=== PATIENT | male | born 1995 | race Caucasian/White ===

== ENCOUNTER 2018-09-18 02:16 | Emergency (ER) | payer SELFPAY ==
[2018-09-18] MEDS ORDERED: Ondansetron ODT 4 MG TAB ONE (03:23)
[2018-09-18] MEDS ORDERED: Ketorolac Tromethamine 30 MG/ML VIAL ONE (03:23)
[2018-09-18] MEDS ORDERED: Lidocaine 1% w/Epinephrine 1:100K 20 ML VIAL ONE (03:47)
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
== END 2018-09-18 05:06 | disposition home or self-care (01) ==
LOC: ERS 02:16
DX: S02.2XXA Fracture of nasal bones, initial encounter for closed fracture (principal); S01.112A Laceration without foreign body of left eyelid and periocular area, initial encounter; Y04.0XXA Assault by unarmed brawl or fight, initial encounter
CPT/HCPCS: 70450; 70486; 72125; 96372; J1885; J2001; Q0162